=== PATIENT | male | born 1965 | race Caucasian/White ===

== ENCOUNTER 2020-07-11 10:10 | Emergency (ER) | payer OTHER, SELFPAY ==
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
[2020-07-11 10:43] VITALS: BP 141/81; PULSE 78; RESP 16; TEMP 36.7; O2SAT 98; BMI 29.2
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
[2020-07-11] MEDS: Cyclobenzaprine HCl 5 MG TABLET PO (13:06)
[2020-07-11] MEDS: NaPROXEN 500 MG TABLET PO (13:06)
[2020-07-11 14:53] VITALS: BP 133/79; PULSE 73; RESP 16; TEMP 36.9; O2SAT 96
== END 2020-07-11 14:40 | disposition home or self-care (01) ==
PROVIDERS: Emergency Provider Emergency Medicine
DX: S70.12XA Contusion of left thigh, initial encounter (principal); S20.212A Contusion of left front wall of thorax, initial encounter; S40.012A Contusion of left shoulder, initial encounter; T79.2XXA Traumatic secondary and recurrent hemorrhage and seroma, initial encounter; V43.52XA Car driver injured in collision with other type car in traffic accident, initial encounter; R22.0 Localized swelling, mass and lump, head; Y93.89 Activity, other specified; Y92.414 Local residential or business street as the place of occurrence of the external cause; Y99.9 Unspecified external cause status; F17.200 Nicotine dependence, unspecified, uncomplicated; F12.90 Cannabis use, unspecified, uncomplicated
CPT/HCPCS: 71101; 73700; 99284